=== PATIENT | female | born 1945 | race Caucasian/White ===

== ENCOUNTER → 2019-02-11 | Outpatient (CLI) | payer MEDICARE, OTHER ==
[~2019-02-11] MED LIST: ANAS1TAB47 PO; CELE200C PO; CRESTOR20 MG PO; CYCL10TA2 PO; DEXL60CA2 PO; ESOM40CA PO; FEMARA2.5 MG PO; FLUT1DIS IH; GADOTERATE 7.5 MMOL/15ML VIAL. IVP ONE; HYDR-2761 PO; LIDO700A4 TP; LISI10TA2 PO; METF500T16 PO; SUMA50TA3 PO
--- NOTE | 2019-02-11 11:58 | KCIC ---
MRI Lumbar Spine without and with contrast History: Lumbar spondylolisthesis Technique: Multiplanar, multi sequential pre and postcontrast MR imaging was performed of the lumbar spine. Comparison: September 22, 2013 Findings: There is again grade 1 anterior spondylolisthesis at L3-4, now mild grade 1 anterior spondylolisthesis at L4-5. Lumbar vertebral body stature is overall maintained. Conus terminates at T12-L1. There is no nodular enhancement of the conus or cauda equina, no enhancement in the intervertebral disc spaces. There is nlxj-ox-cikvtzol L3-4 degenerative disc disease, mild disc desiccation at other levels. There is no significant marrow edema. 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 L1-L2: This level was not included on the axial images, neural foramina and spinal canal overall adequate. L2-L3: This level was not included on the axial images. There is negligible posterior bulge. Neural foramina and spinal canal are adequate. There is facet degenerative change. L3-L4: There is moderate facet degenerative change and bzdn-qs-erwkltxs buckling of the ligamentum flavum flavum. There is partial uncovering of the posterior aspect of the disc due to spondylolisthesis. There is a similar degree of usyz-sr-qkrtbnfp spinal stenosis with flattening of the thecal sac, preserved subarachnoid space. Left neural foramen is overall adequate, minimal narrowing of the inferior right neural foramen. L4-L5: There is moderate to severe facet degenerative change and buckling of the ligamentum flavum. There is fluid in the facet articulations greater on the left. There is overall bkjd-ga-lpfwflsd narrowing of the spinal canal including narrowing of the far lateral recesses bilaterally as seen previously. There is minimal disc osteophyte complex. Neural foramina are not significantly narrowed, disc osteophyte complex near the undersurfaces of exiting L4 nerve roots bilaterally without significant impingement. L5-S1: There is moderate to severe left and moderate right facet degenerative change. There is fluid in the facet articulations bilaterally as seen previously. There is mild buckling of the ligamentum flavum. There is minimal disc osteophyte complex and bulge. There is similar mild to moderate narrowing of the far left lateral recess. There is mild narrowing of the left neural foramen greater from posteriorly by facet. Right neural foramen is adequate. Impression: 1. There is zeab-aa-kgmhdhcu spinal stenosis including narrowing of the far lateral recesses bilaterally at L4-5, also ozke-jl-jwnldvse spinal stenosis at L3-4 with flattening of the thecal sac. There is grade 1 spondylolisthesis at L3-4 and L4-5, multilevel facet degenerative change. There is mild neural foramina compromise as stated. There is fyvc-sy-yebjowzs L3-4 degenerative disc disease. Electronically signed by: Darion Crystal MD (02/11/2019 11:55 AM) [facility]
--- NOTE | 2019-02-11 16:40 | KCIC ---
Study: MRI of the left hip without contrast INDICATION: Persistent left hip pain. COMPARISON: None available. TECHNIQUE: Multiplanar MR imaging of the left hip performed without the use of intravenous or intra-articular contrast. FINDINGS: Bones/hip: No acute fracture seen at either hip or elsewhere throughout the pelvis noting that portions of the sacrum and iliac bones are excluded from the tllin-ey-gdyl. Degenerative changes at both hips but actually appearing slightly more pronounced on the right where there is more pronounced subchondral edema/cystic change at the superior and superomedial aspect of the joint. Collectively, arthrosis at the left hip is somewhat mild relative to presumed more moderate on the right. Incompletely evaluated degenerative changes at the sacroiliac joints and pubic symphysis. Labrum/cartilage: Not well evaluated due to a large amount of noise. Multifocal degenerative labral tearing with an associated paralabral cyst at the anterior/superior aspect as seen on image 17 series 12 measuring up to 1.1 cm. No large full-thickness chondral defect is well identified. Though not well evaluated, there is likely degenerative labral tearing on the right as well given heterogeneity of signal at its expected location. Ligamentum teres: Appears grossly intact. Greater trochanteric bursa: Mild fluid distention of the greater trochanteric bursa on the right, image 8 series 3. No significant fluid within the left greater trochanteric bursa. Musculotendinous: Tendinosis and partial tearing of both the gluteus medius and minimus on the left. Tendinosis and partial tearing of the right gluteus and medius. Small amount of subgluteus minimus and medius bursal fluid on the left. Bilateral common hamstring origin tendinosis. Partial origin tearing on the right, image 5 series 3. Multifocal muscular atrophy but most notably involving the left gluteus minimus . IMPRESSION: 1. Degraded study secondary to patient body habitus with a resultant large amount of noise artifact. This hinders close evaluation of the labrum, cartilage and tendons. 2. Left hip arthrosis collectively appearing somewhat mild. More moderate partially evaluated hip arthrosis on the right. Degenerative labral tearing on the left with an associated paralabral cyst at the anterior/superior aspect measuring at 1.1 cm. No large full-thickness chondral defect is readily apparent though evaluation is limited. No acute fracture. 3. Tendinosis and partial tearing of both the left gluteus medius and minimus with an associated small amount of subjacent bursal fluid. This tearing is chronic given the presence of gluteus minimus more so than medius muscular atrophy/fatty infiltration. 4. Incidental chronic findings involving the right hip region which is only imaged on the large brlnm-do-eixd sequence, as detailed above. Electronically signed by: SHASHANK KOO MD (02/11/2019 4:38 PM) [id number]
== END | disposition home or self-care (01) ==
LOC: KCIC MRI 08:25
PROVIDERS: ATTEND Anesthesiology Pain Medicine
DX: S73.192A Other sprain of left hip, initial encounter (principal); S76.812A Strain of other specified muscles, fascia and tendons at thigh level, left thigh, initial encounter; M47.817 Spondylosis without myelopathy or radiculopathy, lumbosacral region; M51.36 Other intervertebral disc degeneration, lumbar region; M43.16 Spondylolisthesis, lumbar region; M48.07 Spinal stenosis, lumbosacral region; M25.78 Osteophyte, vertebrae; M16.0 Bilateral primary osteoarthritis of hip; X58.XXXA Exposure to other specified factors, initial encounter; Y93.89 Activity, other specified; Y92.89 Other specified places as the place of occurrence of the external cause; Y99.8 Other external cause status
CPT/HCPCS: 72158; 73721; 82565; A9575